=== PATIENT | female | born 1930 | race Caucasian/White ===

== ENCOUNTER 2019-01-08 16:36 | Inpatient (IN) ==
[2019-01-08] MEDS ORDERED: Ondansetron 4 MG/2 ML VIAL IVP ONE (16:58)
[2019-01-08 17:11] LABS: Basophils % 0.7 %; Eosinophils # 0.2 K/mcL (0.0-0.6); Eosinophils % 3.7 %; Hematocrit 37.2 % (35.3-44.9); Hemoglobin 12.4 g/dL (11.5-15.4); Immature Granulocytes % 0.3 % (0-4); Lymphocytes # 2.7 K/mcL (0.6-4.6); Lymphocytes % 47.3 %; Mean Corpuscular HGB Conc 33.3 g/dL (31.6-35.5); Mean Corpuscular Hemoglobin 30.3 pg (28.0-33.3); Mean Platelet Volume 9.7 fL (9.4-12.4); Monocytes # 0.5 K/mcL (0.0-1.3); Monocytes % 8.4 %; Neutrophils # 2.3 K/mcL (1.6-8.9); Platelet Count 159 K/mcL (140-400); Red Blood Count 4.09 M/mcL (3.82-4.97); Red Cell Distribution Width 13.9 % (11.5-14.5); Segmented Neutrophils % 39.6 %
[2019-01-08 17:24] LABS: Alanine Aminotransferase 32 Units/L (7-52); Albumin/Globulin Ratio 1.3 (1.1-2.2); Alkaline Phosphatase 99 Units/L (34-104); Aspartate Amino Transferase 40 Units/L (13-39); BUN/Creatinine Ratio 17 (6-26); Bilirubin,Total 0.4 mg/dL (0.3-1.0); Blood Urea Nitrogen 17 mg/dL (8-23); Calcium 10.1 mg/dL (8.6-10.3); Carbon Dioxide 23 mEq/L (23-29); Chloride 105 mEq/L (98-107); Glucose 167 mg/dL (70-105); Osmolality,Calculated 285 (280-300); Potassium 4.4 mEq/L (3.5-5.1); Sodium 135 mEq/L (136-145); eGFR For Non-African Americans 53 (> 60)
[2019-01-08 17:28] LABS: Troponin I < 0.03 ng/mL (< 0.04)
[2019-01-08 18:16] LABS: Bilirubin,Urine Negative (Negative); Blood,Urine Negative (Negative); Clarity,Urine Clear (Clear); Color,Urine Yellow (Yellow); Glucose,Urine (UA) 100 mg/dL (Normal); Ketones,Urine Negative (Negative); Leukocyte Esterase,Urine Negative (Negative); Nitrite,Urine Negative (Negative); PH,Urine 6.5 pH Units (5.0-8.0); Protein,Urine 100 mg/dL (Neg-Trace); Specific Gravity,Urine 1.025 (1.010-1.025); Urobilinogen,Urine Normal (Normal)
[2019-01-08 18:49] LABS: RBC,Urine 0-3 per hpf (0-3); Squamous Epithelial Cell,Urine Few per lpf (None-Few); WBC,Urine 0-3 per hpf (0-3)
--- NOTE | 2019-01-08 18:52 | Emergency Department Note ---
Disposition Clinical Impression: Acute labyrinthitis Qualifiers: Laterality: unspecified laterality Qualified Code(s): H83.09 - Labyrinthitis, unspecified ear Disposition: Admitted As Inpatient Condition: Good Referrals: Tara Heart CNP [Primary Care Provider] - Forms: ED Satisfaction Letter Time of Disposition: 19:17 Dizziness HPI - General Chief Complaint: ED Dizziness Stated Complaint: Light headed UTI Time Seen by Provider: 01/08/19 16:40 Source: patient, family, EMS Mode of arrival: ambulatory Limitations: no limitations Nursing Notes Reviewed: Yes Vital Signs Reviewed: Yes - History of Present Illness HPI Narrative: she started feeling dizzy and nauseated this morning but took a nap and felt better when she arose. however, after cbtime she began to feel bad again whenever she raises her head to walk or sit up. no ringing in her ears but she is hard of hearing. no history of vertigo or dizziness like this before. no headache, no focal weakness or numbness, speech or vision problems. no chest pain or shortness of breath. she says she feels like she is spinning around when she raises her head. had a recent UTI and was put on macrodantin which she is still taking but no other med changes Pt Subjective Complaint: dizziness, lightheadedness Onset (ago): day(s) (1) Timing: gradual onset Description: sense of movement, "room spinning", lightheadedness History of similar episodes: No History of trauma: No Severity: moderate Improves with: remaining still Worsens with: movement - Related Data Home Medications Medication Instructions Recorded Confirmed Amitriptyline [Elavil] 50 mg PO HS 03/30/17 01/08/19 Levothyroxine [Synthroid] 75 mcg PO DAILY 03/30/17 01/08/19 Losartan Potassium [Cozaar] 100 mg PO DAILY 03/30/17 01/08/19 Omeprazole [PriLOSEC] 20 mg PO DAILY 03/30/17 01/08/19 Alprazolam [Alprazolam Xr] 0.5 mg PO HS 09/05/17 01/08/19 Gabapentin [Neurontin] 300 mg PO HS 06/05/18 01/08/19 Allergies Allergy/AdvReac Type Severity Reaction Status Date / Time metoclopramide [From Reglan] AdvReac Intermediate See Verified 07/20/18 13:00 Comments Constitutional: Denies: fever, chills, weakness Eyes: Denies: eye pain, eye discharge, vision change ENT ED: Denies: ear pain, throat pain, dental pain Cardiovascular: Denies: chest pain, palpitations, dyspnea on exertion Respiratory: Denies: cough, dyspnea Gastrointestinal: Reports: nausea, vomiting. Denies: abdominal pain, diarrhea Genitourinary: Denies: urgency, dysuria, frequency Musculoskeletal: Denies: back pain, neck pain Integumentary: Denies: rash, abrasion Neurological: Denies: headache, weakness, numbness Psychiatric: Denies: anxiety, depression Endocrine: Denies: fatigue, heat or cold intolerance Hematological/Lymphatic: Denies: easy bleeding, easy bruising Allergic/Immunologic: Denies: facial swelling, urticaria Past Medical History - Past Medical History Medical history: Reports: GERD, hyperlipidemia, hypertension, renal disease, thyroid disease Psychiatric history: Reports: no psych history - Social History Smoking Status: Never smoker Smokeless Tobacco Status: No Alcohol use: Reports: none Drug use: Reports: none Physical Exam - General Limitations: no limitations General appearance: alert, in distress - Head Head exam: atraumatic, normocephalic - Eye Eye exam: Present: normal appearance, PERRL, EOMI. Absent: scleral icterus, nystagmus - ENT ENT exam: normal exam, normal oropharynx, mucous membranes moist, other (tardive dyskinesia movements of her tongue) - Neck Neck exam: Present: normal inspection, full ROM, trachea midline. Absent: men ingismus, lymphadenopathy - Chest Chest inspection: Present: normal inspection, symmetric chest wall rise - Respiratory Respiratory exam: Present: normal lung sounds bilaterally - Cardiovascular Cardiovascular exam: Present: regular rate, normal rhythm, normal heart sounds - Abdominal Exam Abdominal exam: Present: soft, Non-Tender, normal bowel sounds - Extremities Exam Extremities exam: Present: normal inspection, full ROM. Absent: pedal edema - Expanded Lower Extremity Exam Gait: other (has not been able to stand) - Back Exam Back exam: Present: normal inspection, full ROM - Neurological Exam Neurological exam: Present: alert, oriented X3, CN II-XII intact, reflexes normal. Absent: motor sensory deficit - Psychiatric Psychiatric exam: Present: normal affect, normal mood - Skin Skin exam: Present: warm, dry, normal color Course - Reevaluation(s) Reevaluation #1: 1913: has not improved with antivert and zofran. is not able to stand or even sit up without dizziness and nausea. I have consulted Dr. Wright and he will observe her in the hospital Vital Signs Temperature 97.7 F 01/08/19 16:40 Pulse Rate 78 01/08/19 16:40 Respiratory Rate 18 01/08/19 16:40 Blood Pressure 167/99 01/08/19 16:40 O2 Sat by Pulse Oximetry 95 01/08/19 16:40 Temperature 97.7 F 01/08/19 16:40 Pulse Rate 83 01/08/19 18:30 Respiratory Rate 18 01/08/19 16:40 Blood Pressure 191/84 01/08/19 18:30 O2 Sat by Pulse Oximetry 96 01/08/19 18:30 Oxygen Delivery Oxygen Delivery Room Air Dizziness - Differential Diagnosis Likely: adverse reaction to drug, benign paroxysmal positional vertigo, orthostatic hypotension, vertebral basilar insufficiency, cerebrovascular accident, acute vestibular neuronitis, cerebellar infarct - Medical Records Medical records reviewed: Yes I reviewed the patient's medical records. - Lab Data Lab results reviewed: Yes I reviewed the patient's lab results. Result diagrams: 01/08/19 17:00 01/08/19 17:00 Lab Results 01/08/19 01/08/19 01/08/19 Range/Units 17:00 17:00 18:02 WBC 5.7 (4.3-11.1) K/mcL RBC 4.09 (3.82-4.97) M/mcL Hgb 12.4 (11.5-15.4) g/dL Hct 37.2 (35.3-44.9) % MCV 91.0 (83.0-100.0) fL MCH 30.3 (28.0-33.3) pg MCHC 33.3 (31.6-35.5) g/dL RDW 13.9 (11.5-14.5) % Plt Count 159 (140-400) K/mcL MPV 9.7 (9.4-12.4) fL Immature Gran % 0.3 (0-4) % Seg Neutrophils % 39.6 % Lymphocytes % 47.3 % Monocytes % 8.4 % Eosinophils % 3.7 % Basophils % 0.7 % Neutrophils # 2.3 (1.6-8.9) K/mcL Lymphocytes # 2.7 (0.6-4.6) K/mcL Monocytes # 0.5 (0.0-1.3) K/mcL Eosinophils # 0.2 (0.0-0.6) K/mcL Basophils # 0.0 (0.0-0.2) K/mcL Sodium 135 L (136-145) mEq/L Potassium 4.4 (3.5-5.1) mEq/L Chloride 105 (98-107) mEq/L Carbon Dioxide 23 (23-29) mEq/L BUN 17 (8-23) mg/dL Creatinine 0.99 (0.60-1.20) mg/dL Est GFR ( Amer) > 60 (> 60) Est GFR (Non-Af Amer) 53 L (> 60) BUN/Creatinine Ratio 17 (6-26) Glucose 167 H (70-105) mg/dL Calculated Osmolality 285 (280-300) Calcium 10.1 (8.6-10.3) mg/dL Total Bilirubin 0.4 (0.3-1.0) mg/dL AST 40 H (13-39) Units/L ALT 32 (7-52) Units/L Alkaline Phosphatase 99 (34-104) Units/L Troponin I < 0.03 (< 0.04) ng/mL Serum Total Protein 7.0 (6.4-8.9) g/dL Albumin 4.0 (3.5-5.7) g/dL Globulin 3.0 (2.4-3.5) g/dL Albumin/Globulin Ratio 1.3 (1.1-2.2) Urine Color Yellow (Yellow) Urine Clarity Clear (Clear) Urine pH 6.5 (5.0-8.0) pH Units Ur Specific [place] 1.025 (1.010-1.025) Urine Protein 100 H (Neg-Trace) mg/dL Urine Glucose (UA) 100 H (Normal) mg/dL Urine Ketones Negative (Negative) mg/dL Urine Blood Negative (Negative) Urine Nitrite Negative (Negative) Urine Bilirubin Negative (Negative) Urine Urobilinogen Normal (Normal) mg/dL Ur Leukocyte Esterase Negative (Negative) Urine Microscopic RBC 0-3 (0-3) per hpf Urine Microscopic WBC 0-3 (0-3) per hpf Ur Squamous Epith Cells Few (None-Few) per lpf Ur Culture Indicated? NO (NO) - Radiology Data Radiology results reviewed: Yes I reviewed the patient's radiology results. - EKG Data EKG attestation: Yes I reviewed and interpreted this EKG. EKG results narrative: NSR 79, normal intervals and axis, inferior Q waves suggestive of old inf. UT. n acute ST or T waves changes. no old EKGs
[2019-01-08] MEDS ORDERED: Acetaminophen 325 MG TABLET PO PRN (20:28)
[2019-01-08] MEDS ORDERED: Naloxone 0.4 MG/ML INJ IVP PRN (20:28)
[2019-01-08] MEDS ORDERED: traMADol 50 MG TABLET PO PRN (20:28)
[2019-01-08] MEDS ORDERED: cloNIDine HCl 0.1 MG TABLET PO PRN (21:48)
[2019-01-08] MEDS: D5% in 0.45% NACL 1,000 ML IVC SCH (22:41)
[2019-01-08] MEDS: Ondansetron 4 MG/2 ML VIAL IVP PRN (22:54)
[2019-01-08] MEDS: Gabapentin 300 MG CAPSULE PO SCH (23:03)
[2019-01-08] MEDS: ALPRAZolam 0.5 MG TABLET PO SCH (23:04)
[2019-01-09] MEDS: *HR* Enoxaparin 40 MG/0.4 ML SYRINGE SQ SCH (06:24)
[2019-01-09] MEDS: Nitrofurantoin (BID) 100 MG CAPSULE PO SCH ×2 (08:59→16:28)
[2019-01-09] MEDS: Aspirin Enteric Coated 81 MG Tablet PO SCH (09:00)
[2019-01-09 09:07] LABS: Basophils % 0.6 %; Calcium 9.6 mg/dL (8.6-10.3); Eosinophils # 0.2 K/mcL (0.0-0.6); Eosinophils % 2.4 %; Hemoglobin 12.3 g/dL (11.5-15.4); Immature Granulocytes % 0.1 % (0-4); Lymphocytes # 2.8 K/mcL (0.6-4.6); Lymphocytes % 40.7 %; Mean Corpuscular HGB Conc 33.2 g/dL (31.6-35.5); Mean Corpuscular Hemoglobin 30.4 pg (28.0-33.3); Mean Corpuscular Volume 91.4 fL (83.0-100.0); Mean Platelet Volume 9.9 fL (9.4-12.4); Monocytes # 0.5 K/mcL (0.0-1.3); Neutrophils # 3.3 K/mcL (1.6-8.9); Platelet Count 158 K/mcL (140-400); Potassium 4.1 mEq/L (3.5-5.1); Red Blood Count 4.05 M/mcL (3.82-4.97); Red Cell Distribution Width 13.9 % (11.5-14.5); Segmented Neutrophils % 48.2 %
[2019-01-09] MEDS: D5% in 0.45% NACL 1,000 ML IVC SCH (10:19)
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
[2019-01-09] MEDS: Ondansetron 4 MG/2 ML VIAL IVP PRN (16:28)
[2019-01-09] MEDS: Gabapentin 300 MG CAPSULE PO SCH (20:08)
[2019-01-09] MEDS: ALPRAZolam 0.5 MG TABLET PO SCH (20:08)
[2019-01-10] MEDS: *HR* Enoxaparin 40 MG/0.4 ML SYRINGE SQ SCH (05:13)
[2019-01-10] MEDS: Nitrofurantoin (BID) 100 MG CAPSULE PO SCH ×2 (08:15→16:21)
[2019-01-10] MEDS: Aspirin Enteric Coated 81 MG Tablet PO SCH (08:15)
--- NOTE | 2019-01-10 14:47 | Internal Med Progress Note ---
Date of Encounter: 01/10/19 Time of Encounter: 14:45 - Assessment and plan (1) Acute labyrinthitis Current Visit: Yes Status: Acute Assessment and plan: This seems like most likely diagnosis. Even know she is improved, she has still had symptoms and is unable to safely move around on her own. For this reason, we will admit her to consider correction placement or acute rehabilitation, she improves within the next few days. Qualifiers: Laterality: unspecified laterality Qualified Code(s): H83.09 - Labyrinthitis, unspecified ear (2) Hypertension, essential, benign Current Visit: Yes Status: Acute Assessment and plan: Adequate control. (3) Hyperlipidemia Current Visit: Yes Status: Acute Assessment and plan: We will continue stable medicine regimen. Qualifiers: Hyperlipidemia type: unspecified Qualified Code(s): E78.5 - Hyperlipidemia, unspecified (4) GERD (gastroesophageal reflux disease) Current Visit: Yes Status: Acute Assessment and plan: We will continue current medical regimen. Qualifiers: Esophagitis presence: esophagitis presence not specified Qualified Code(s): K21.9 - Gastro-esophageal reflux disease without esophagitis (5) Constipation by delayed colonic transit Current Visit: Yes Status: Acute Assessment and plan: For some reason, she did not have MiraLAX ordered yesterday. This has now been ordered and will follow. - Subjective Interval history: Patient is feeling better than yesterday but still with weakness and dizziness whenever she gets up. She is unable to move alone. She denies nausea, except when she tries to get around. She would like to go home but has no ability to stay at home, alone. She has a coming to her house on a regular basis but they are not 24 7 and her daughter has to work. She denies other problems. She continues to have constipation. Patient has no complaint of chest discomfort, dyspnea, orthopnea, palpitations, nausea or vomiting, constipation or diarrhea, other changes in bowel habits, difficulty with urination, rash or itching, or other new complaints, except as mentioned above. Review of systems is otherwise negative. I discussed management of her care with nursing staff. - Constitutional Vitals: Temp Pulse Resp BP Pulse Ox 97.9 F 70 16 102/63 93 01/10/19 13:57 01/10/19 13:57 01/10/19 13:57 01/10/19 13:57 01/10/19 13:57 Exam: Examination: (Except as mentioned above): General: In no apparent distress. Alert and oriented 3. Nondiaphoretic. Head: Atraumatic and normocephalic. Respiratory: No use of accessory muscles. Lungs are clear throughout. Normal airflow. Cardiovascular: Regular rate and rhythm without murmur appreciated. Abdomen: Bowel sounds are normal. No hepatosplenomegaly mass or tenderness appreciated. Obese and therefore difficult to palpate deeply. Extremities: No cyanosis clubbing or edema. Skin: Warm and non-diaphoretic with no new lesions noted. Internal Medicine: Result - Labs CBC & Chem 7: 01/09/19 08:35 01/09/19 08:35 Consult Discharge Plan - Plan Referrals: Tara Heart CNP [Primary Care Provider] -
[2019-01-10] MEDS: Gabapentin 300 MG CAPSULE PO SCH (19:47)
[2019-01-10] MEDS: Ondansetron 4 MG/2 ML VIAL IVP PRN (19:48)
[2019-01-10] MEDS: ALPRAZolam 0.5 MG TABLET PO SCH (19:48)
[2019-01-11] MEDS ORDERED: *HR* Enoxaparin 30 MG/0.3 ML SYRINGE SQ SCH (07:00)
[2019-01-11] MEDS: Nitrofurantoin (BID) 100 MG CAPSULE PO SCH ×2 (08:18→16:21)
[2019-01-11] MEDS: Aspirin Enteric Coated 81 MG Tablet PO SCH (08:18)
--- NOTE | 2019-01-11 10:32 | Internal Med Progress Note ---
Date of Encounter: 01/11/19 Time of Encounter: 10:29 - Assessment and plan (1) Acute labyrinthitis Current Visit: Yes Status: Acute Assessment and plan: improving. continue meclizine as ordered. PT and OT to eval. Qualifiers: Laterality: unspecified laterality Qualified Code(s): H83.09 - Labyrinthitis, unspecified ear (2) UTI (urinary tract infection) Current Visit: Yes Status: Acute Assessment and plan: improving denies urinary complaints. continue macrobid till complete. Qualifiers: Urinary tract infection type: site unspecified Hematuria presence: without hematuria Qualified Code(s): N39.0 - Urinary tract infection, site not specified (3) Hypertension, essential, benign Current Visit: Yes Status: Acute Assessment and plan: controlled with currrent meds. monitor BP. (4) Constipation by delayed colonic transit Current Visit: Yes Status: Acute Assessment and plan: continue miralax. monitor for effectiveness. - Time Spent With Patient less than 15 minutes - Subjective Interval history: pt sitting up in chair, states that she is feeling a bit better, not as nauseated or dizzy. ate breakfast well with am. states her "bowels have not moved in a few days but started taking meds to assist. denies fever, chills, NVD, SOB or chest pain. PT and OT to eval. lives at home alone. will see how therapy eval goes and device a discharge plan. - Constitutional Vitals: Temp Pulse Resp BP Pulse Ox 97.3 F L 63 16 122/70 94 01/11/19 08:07 01/11/19 10:21 01/11/19 10:21 01/11/19 10:21 01/11/19 10:21 General appearance: Present: cooperative, A&O X 3, pleasant - Head Head exam: Present: atraumatic, normocephalic - Eye Eye exam: Present: PERRL, conjuntiva pink, sclera anicteric Pupils: Present: PERRL - Neck Neck exam general surgery: Present: supple, trachea midline. Absent: lymp hadenopathy - Respiratory Respiratory exam: Present: CTAB. Absent: accessory muscle use, rales, rhonchi, wheezes - Cardiovascular Cardiovascular exam: Present: RRR, +S1, +S2. Absent: diastolic murmur, gallop, rubs, systolic murmur - GI/Abdominal GI/Abdominal exam: Present: normal bowel sounds, soft, no peritoneal signs. Absent: distended, tenderness - Extremities Exam Extremities exam: Present: warm, radial pulses palpable and symmetrical. Absent: calf tenderness, cyanotic, pedal edema - Neurological Exam Neurological exam: Present: CN II-XII intact, oriented X3, no focal deficits. Absent: pronater drift, facial droop, speech deficit - Skin Skin exam: Present: dry, intact Internal Medicine: Result - Labs CBC & Chem 7: 01/09/19 08:35 01/09/19 08:35 Consult Discharge Plan - Plan Referrals: Tara Heart [employer] [Primary Care Provider] -
[2019-01-11 10:37] LABS: Albumin 3.6 g/dL (3.5-5.7); Albumin/Globulin Ratio 1.3 (1.1-2.2); Bilirubin,Total 0.4 mg/dL (0.3-1.0); Calcium 9.8 mg/dL (8.6-10.3); Globulin 2.8 g/dL (2.4-3.5); Potassium 4.5 mEq/L (3.5-5.1); Total Protein 6.4 g/dL (6.4-8.9)
--- NOTE | 2019-01-11 10:51 | Electrocardiograph Report ---
[place] [id number] Test Date: 2019-01-08 Pat Name: Thu Barba Department: EDG1 Room: 111 Gender: F Physical Therapy Coordinator: : 1930 Requested By: Roberth Weller Order Number: [id number] Reading MD: Kimberly Hyde Measurements Intervals Baker Rate: 79 P: NM: QRS: 18 QRSD: 95 T: 27 QT: 381 QTc: 437 Interpretive Statements Normal sinus rhythm Inferior infarct, old Electronically Signed On 01-11-2019 10:49:58 EDT by Kimberly Hyde
[2019-01-11] MEDS ORDERED: Bisacodyl 10 MG RECTAL SUPPOSITORY RC ONE (14:30)
[2019-01-11] MEDS: Gabapentin 300 MG CAPSULE PO SCH (20:36)
[2019-01-11] MEDS: ALPRAZolam 0.5 MG TABLET PO SCH (20:36)
[2019-01-12] MEDS: *HR* Enoxaparin 30 MG/0.3 ML SYRINGE SQ SCH (08:17)
[2019-01-12] MEDS: Aspirin Enteric Coated 81 MG Tablet PO SCH (08:17)
--- NOTE | 2019-01-12 09:59 | Internal Med Progress Note ---
Date of Encounter: 01/12/19 Time of Encounter: 09:57 - Assessment and plan (1) Acute labyrinthitis Current Visit: Yes Status: Acute Assessment and plan: improving. continue meclizine as ordered. Continue PT and OT. Will follow progress. Ambulates with Walker. Lives at home alone. Qualifiers: Laterality: unspecified laterality Qualified Code(s): H83.09 - Labyrinthiti s, unspecified ear (2) UTI (urinary tract infection) Current Visit: Yes Status: Acute Assessment and plan: improving denies urinary complaints. continue macrobid till complete. Qualifiers: Urinary tract infection type: site unspecified Hematuria presence: without hematuria Qualified Code(s): N39.0 - Urinary tract infection, site not specified (3) Hypertension, essential, benign Current Visit: Yes Status: Acute Assessment and plan: controlled with currrent meds. monitor BP. (4) Constipation by delayed colonic transit Current Visit: Yes Status: Acute Assessment and plan: continue miralax. monitor for effectiveness. - Subjective Interval history: pt sitting up in chair, complaining she is slightly dizzy this morning. ate breakfast well with am. states her "bowels have not moved in a few days but started taking meds to assist. denies fever, chills, NVD, SOB or chest pain. Lives at home alone. Participated with therapy yesterday. Completed ADLs with min to mod assist. Ambulates with Walker. Will give PRN order of meclizine and monitor for effectiveness of dizziness. - Constitutional Vitals: Temp Pulse Resp BP Pulse Ox 97.7 F 64 16 112/69 95 01/12/19 07:00 01/12/19 07:00 01/12/19 07:00 01/12/19 07:00 01/12/19 07:00 General appearance: Present: cooperative, A&O X 3, pleasant, no acute distress, obese, answers questions appropriately - Head Head exam: Present: atraumatic, normocephalic - Eye Eye exam: Present: PERRL, conjuntiva pink, sclera anicteric Pupils: Present: PERRL - Neck Neck exam general surgery: Present: supple, trachea midline. Absent: lymphadenopathy - Respiratory Respiratory exam: Present: CTAB. Absent: accessory muscle use, rales, rhonchi, wheezes - Cardiovascular Cardiovascular exam: Present: RRR, +S1, +S2. Absent: diastolic murmur, gallop, rubs, systolic murmur - GI/Abdominal GI/Abdominal exam: Present: normal bowel sounds, soft, no peritoneal signs. Absent: distended, tenderness - Extremities Exam Extremities exam: Present: warm, radial pulses palpable and symmetrical. Absent: calf tenderness, cyanotic, pedal edema - Neurological Exam Neurological exam: Present: CN II-XII intact, oriented X3, no focal deficits. Absent: pronater drift, facial droop, speech deficit - Skin Skin exam: Present: dry, intact Internal Medicine: Result - Labs CBC & Chem 7: 01/09/19 08:35 01/11/19 10:18 Labs: BMP 01/11/19 10:18 Sodium 136 Potassium 4.5 Chloride 107 Carbon Dioxide 25 BUN 19 Creatinine 1.21 H Glucose 202 H Calcium 9.8 Liver Function 01/11/19 Range/Units 10:18 Total Bilirubin 0.4 (0.3-1.0) mg/dL AST 31 (13-39) Units/L ALT 27 (7-52) Units/L Alkaline Phosphatase 88 (34-104) Units/L Albumin 3.6 (3.5-5.7) g/dL Consult Discharge Plan - Plan Referrals: Tara Heart CNP [Primary Care Provider] -
[2019-01-12 19:34] LABS: Bilirubin,Urine Negative (Negative); Blood,Urine Negative (Negative); Clarity,Urine Slightly Cloudy (Clear); Glucose,Urine (UA) 100 mg/dL (Normal); Ketones,Urine Negative (Negative); Leukocyte Esterase,Urine Trace (Negative); Nitrite,Urine Negative (Negative); PH,Urine 5.5 pH Units (5.0-8.0); Protein,Urine Negative (Neg-Trace); Specific Gravity,Urine 1.015 (1.010-1.025); Urobilinogen,Urine Normal (Normal)
[2019-01-12 19:35] LABS: Color,Urine Yellow (Yellow)
[2019-01-12 19:38] LABS: Bacteria,Urine Few per hpf (None-Few); Squamous Epithelial Cell,Urine Few per lpf (None-Few)
[2019-01-12] MEDS: ALPRAZolam 0.5 MG TABLET PO SCH (20:28)
[2019-01-12] MEDS: Gabapentin 300 MG CAPSULE PO SCH (20:28)
[2019-01-13] MEDS: Aspirin Enteric Coated 81 MG Tablet PO SCH (08:41)
[2019-01-13] MEDS: *HR* Enoxaparin 30 MG/0.3 ML SYRINGE SQ SCH (08:41)
[2019-01-13] MEDS ORDERED: Bisacodyl 10 MG RECTAL SUPPOSITORY RC SCH (09:00)
--- NOTE | 2019-01-13 09:34 | Discharge Summary ---
Orders not resulted at time of discharge: Pending orders 01/12/19 18:00 Culture,Urine [RM] Routine Date of Encounter: 01/13/19 Time of Encounter: 09:31 - Discharge Diagnosis (1) Acute labyrinthitis Priority: Primary Status: Acute Comments: Patient continues with complaints of dizziness. Per patient family member patient does have a prescription of meclizine at home which indicates that this is been a chronic issue prior to admission here. Patient shows nor orthostatic changes during position change. Patient will be discharged home with a new prescription for meclizine. Patient is recommended to follow up with her PCP after discharge. Patient will continue physical therapy through outpatient services per home health Qualifiers: Laterality: unspecified laterality Qualified Code(s): H83.09 - Labyrinthitis, unspecified ear (2) Hypertension, essential, benign Priority: Secondary Status: Chronic Comments: No issues during her stay at this facility. Patient's vital signs have remained stable. We will be discharged home with current home medications. (3) GERD (gastroesophageal reflux disease) Priority: Secondary Status: Chronic Comments: No acute issues during her stay at this facility. Patient will be discharged home with current home medications and is to follow-up with PCP Qualifiers: Esophagitis presence: esophagitis presence not specified Qualified Code(s): K21.9 - Gastro-esophageal reflux disease without esophagitis Hospital course: Ms. Barba is a 88 year old female, who presented to emergency department with complaints of increased dizziness and nausea/vomiting. Patient was treated with gentle hydration after being in admitted to the medical floor. Patient was treated with meclizine for her dizziness, which was somewhat effective. Patient noted to continue with complaints of dizziness during position changing althoug h no orthostatic deficits were noted. Nursing discussed patient's dizziness with family members and it was noted that patient does have a existing prescription for meclizine at home, which indicates that her dizziness has been a chronic issue. Patient was recently treated for a UTI and has finished her antibiotic course. Currently she denies any dysuria and has been afebrile. She was evaluated by PT/OT during her stay at this facility and will continue her therapy through home health services at home. Discharge discussed with: patient - Time Spent with Patient Total time spent providing and/or coordinating discharge services: Time spent: Less than 30 minutes - Discharge Medications Prescriptions: No Action Gabapentin [Neurontin] 300 mg PO HS Amitriptyline [Elavil] 50 mg PO HS Omeprazole [PriLOSEC] 20 mg PO DAILY Losartan Potassium [Cozaar] 100 mg PO DAILY Levothyroxine [Synthroid] 75 mcg PO DAILY Alprazolam [Alprazolam Xr] 0.5 mg PO HS Aspirin [Lo-Dose Aspirin EC] 81 mg PO DAILY Home Medications: Amitriptyline [Elavil] 50 mg PO HS 03/30/17 [History] Levothyroxine [Synthroid] 75 mcg PO DAILY 03/30/17 [History] Losartan Potassium [Cozaar] 100 mg PO DAILY 03/30/17 [History] Omeprazole [PriLOSEC] 20 mg PO DAILY 03/30/17 [History] Alprazolam [Alprazolam Xr] 0.5 mg PO HS 09/05/17 [History] Gabapentin [Neurontin] 300 mg PO HS 06/05/18 [History] Aspirin [Lo-Dose Aspirin EC] 81 mg PO DAILY 01/08/19 [History] Allergies/Adverse Reactions: Allergy/AdvReac Type Severity Reaction Status Date / Time metoclopramide [From Reglan] AdvReac Intermediate See Verified 07/20/18 13:00 Comments Date of admission: 01/10/19 14:49 Primary care physician: Tara Heart CNP Consults: 01/10/19 18:01 Consult to Occupational Therapy [CONS] Routine Comment: Evaluate, develop and implement POC Reason for Consult: potential rehab need for eval Does patient have active BEDREST order?: No Is patient medically & hemodynamically stable?: Yes Patient assessed for mobility or mobilized this visit?: Yes Consult to Physical Therapy [CONS] Routine Comment: Evaluate, develop and implement POC Reason for Consult: Potential rehab eval needed Does patient have active BEDREST order?: No Is patient medically & hemodynamically stable?: Yes Patient assessed for mobility or mobilized this visit?: Yes Discharging clinician: Yo Wright - Constitutional Vitals: Temp Pulse Resp BP Pulse Ox 97.7 F 64 16 117/68 95 01/13/19 04:26 01/13/19 04:26 01/13/19 04:26 01/13/19 04:26 01/13/19 04:26 General appearance: Present: cooperative, A&O X 3, pleasant, no acute distress, obese, answers questions appropriately - Head Head exam: Present: atraumatic, normocephalic - Eye Eye exam: Present: PERRL, conjuntiva pink, sclera anicteric Pupils: Present: PERRL - Neck Neck exam general surgery: Present: supple, trachea midline. Absent: lymphaden opathy - Respiratory Respiratory exam: Present: decreased breath sounds, CTAB. Absent: accessory muscle use, rales, rhonchi, wheezes - Cardiovascular Cardiovascular exam: Present: RRR, +S1, +S2. Absent: diastolic murmur, gallop, rubs, systolic murmur - GI/Abdominal GI/Abdominal exam: Present: normal bowel sounds, soft, no peritoneal signs. Absent: distended, tenderness - Extremities Exam Extremities exam: Present: warm, radial pulses palpable and symmetrical. Absent: calf tenderness, cyanotic, pedal edema - Neurological Exam Neurological exam: Present: CN II-XII intact, oriented X3, no focal deficits. Absent: pronater drift, facial droop, speech deficit - Skin Skin exam: Present: dry, intact - Patient Status Disposition: Home Health Service Condition: Good Functional capacity at discharge: uses cane/walker Overall status at discharge: patient is progressing back to baseline - Discharge Instructions Follow Up With: Tara Heart CNP [Primary Care Provider] - - Diet and Activity Activity: ambulate only with your walker, as per physical therapy, increase activity as tolerated Diet: low fat, low cholesterol, low salt diet
--- NOTE | 2019-01-13 10:22 | Physician Discharge Referral ---
Home Health/Hosp Referral Info Transfer to: Home Health Provider in Charge Post Discharge: PCP - Diagnosis (1) Acute labyrinthitis Priority: Primary Status: Acute (2) Hypertension, essential, benign Priority: Secondary Status: Chronic (3) GERD (gastroesophageal reflux disease) Priority: Secondary Status: Chronic - Respiratory Orders Smoking Cessation: Smoking cessation has been advised. For more information, call the [place] Tobacco Quit Line at 1-074-OQFI-NOW. - Diet/Nutrition Diet/Nutrition Orders: No Added Salt (WILDER) - Activity Activity Orders: Up ad marybeth, Walker - Services Needed Following services are medically necessary services: Physical Therapy, Occupational Therapy - Transfer Medications Home Medications: Amitriptyline [Elavil] 50 mg PO HS 03/30/17 [History] Levothyroxine [Synthroid] 75 mcg PO DAILY 03/30/17 [History] Losartan Potassium [Cozaar] 100 mg PO DAILY 03/30/17 [History] Omeprazole [PriLOSEC] 20 mg PO DAILY 03/30/17 [History] Alprazolam [Alprazolam Xr] 0.5 mg PO HS 09/05/17 [History] Gabapentin [Neurontin] 300 mg PO HS 06/05/18 [History] Aspirin [Lo-Dose Aspirin EC] 81 mg PO DAILY 01/08/19 [History] Allergies/Adverse Reactions: Allergy/AdvReac Type Severity Reaction Status Date / Time metoclopramide [From Reglan] AdvReac Intermediate See Verified 07/20/18 13:00 Comments Certification: Further, I certify that my clinical findings support that this patient is homebound (i.e. absences from home require considerable and taxing effort and are for medical reasons or yazidism services or infrequently or short duration when for other reasons) because: Homebound Reason: Leaving home requires considerable and taxing effort due to condition Attestation: My signature below is to certify that this patient is under my care and that I, or nurse practitioner, or a physician's chiropractor assistant working with me, has a [id number] encounter with this patient.
--- NOTE | 2019-01-13 13:42 | Event Note ---
Date of Encounter: 01/13/19 Time of Encounter: 13:40 Patient had a BM in which there was ivonne blood noted in the toilet. She has had complaints constipation overnight and stated that she remains constipated and had to bear down with pain when she was having her BM. Rectum was inspected with no external hemorrhoids. Patient had stated that they placed a suppository prior to her BM earlier today and no ivonne blood was noted at that time. Patient will be discharged with a prescription for Colace to be taken twice a day
[2019-01-13 13:55] VITALS: BP 143/83
== END 2019-01-13 17:07 | disposition home health service (06) | DRG 149 ==
LOC: EMEROOGRE 16:36 → INPGRE 16:36